=== PATIENT | female | born 1985 | race Caucasian/White ===

== ENCOUNTER 2022-08-28 17:24 | Emergency (ER) | payer BC ==
[~2022-08-28 17:24] MED LIST: Iopamidol 300 61% 100 ML VIAL FS ONE
[2022-08-28] MEDS ORDERED: Dicyclomine 20 MG/2 ML VIAL ONE (19:08)
[2022-08-28 19:22] LABS: ALT (SGPT) 36 U/L (8-55); AST (SGOT) 25 U/L (5-34); Albumin 4.6 g/dL (3.5-5.0); Alkaline Phosphatase 101 U/L (40-110); Anion Gap 16 mmol/L (10-20); BUN (Urea Nitrogen) 16 mg/dL (7.0-18.7); Bilirubin, Total 0.2 mg/dL (0.2-1.2); Calc. Creatinine Clearance 0 mL/min (70-130); Calcium 9.2 mg/dL (7.8-10.44); Carbon Dioxide 21 mmol/L (22-29); Estimated GFR 98; Globulin 3.7 g/dL (2.4-3.5); Glucose 100 mg/dL (70-105); Protein, Total 8.3 g/dL (6.0-8.3); Sodium 136 mmol/L (136-145)
[2022-08-28] MEDS ORDERED: Ondansetron PF 4 MG/2 ML Vial ONE (19:23)
[2022-08-28 19:34] LABS: Chloride 103 mmol/L (98-107); Potassium 3.7 mmol/L (3.5-5.1)
[2022-08-28 19:43] LABS: #Basophils 0.1 10x3/uL (0.0-0.2); #Eosinphils 0.2 10x3/uL (0.0-0.5); #Monocytes 0.7 10x3/uL (0.0-1.1); #Neutrophils 6.6 10x3/uL (1.5-8.4); %Basophils 0.5 % (0.0-2.0); %Eosinophils 2.4 % (0.0-6.0); %Lymphocytes 19.2 % (18.0-47.0); %Monocytes 7.4 % (0.0-10.0); Hemoglobin 8.8 g/dL (12.0-15.5); Mean Corpuscular HGB CONC 29.2 g/dL (32.0-36.0); Mean Corpuscular Volume 65.2 fl (81.6-98.3); Mean Platelet Volume 10.3 fl (7.4-10.4); Platelet Count 455 10x3/uL (150-450); RBC Distribution Width 19.2 % (11.5-14.5); Red Blood Cell (RBC) Count 4.62 10x6/uL (3.90-5.03); White Blood Cell (WBC) Count 9.4 10x3/uL (3.5-10.5)
[2022-08-28 19:52] LABS: BHCG - Serum Negative (NEGATIVE); Pregs Control Background? CLEAR/WHITE (CLR/WHITE); Pregs Control Bar Appear? YES (CONTROL BAR)
[2022-08-28 21:38] LABS: Hypochromia SLIGHT = 6-15 cells (100X) (0-5/hpf); Microcytosis SLIGHT = 6-15 cells (100X) (0-5/hpf); Platelet Morphology Comment Appears Increased
== END 2022-08-28 21:26 | disposition home or self-care (01) ==
LOC: CSHERS 17:24
DX: K52.9 Noninfective gastroenteritis and colitis, unspecified (principal); K92.1 Melena; D64.9 Anemia, unspecified
CPT/HCPCS: 36415; 74177; 80053; 83605; 84703; 85025; 87798; 96361; 96372; 96374; J2405; Q9967

== ENCOUNTER 2025-05-21 08:47 | Outpatient (CLI) | payer BC | END 2025-05-21 08:48 | disposition home or self-care (01) | LOC: CSHLAB 08:47 | PROVIDERS: ATTEND Obstetrics & Gynecology | DX: Z01.810 Encounter for preprocedural cardiovascular examination (principal); D25.0 Submucous leiomyoma of uterus | CPT/HCPCS: 84703; 85027; 86850; 86900; 86901; 93005; 93010 ==

== ENCOUNTER 2025-05-25 06:01 | Day surgery (SDC) | payer BC ==
[2025-05-21 09:15] VITALS: BMI 41.3
[2025-05-21 10:31] LABS: Hematocrit 34.9 % (34.9-44.5); Hemoglobin 11.8 g/dL (12.0-15.5); Mean Corpuscular Hemoglobin 28.6 pg (27.0-33.0); Mean Corpuscular Volume 84.5 fL (81.6-98.3); Platelet Count 276 10x3/uL (150-450); Red Blood Cell (RBC) Count 4.13 10x6/uL (3.90-5.03); White Blood Cell (WBC) Count 5.81 10x3/uL (3.5-10.5)
[2025-05-21 10:43] LABS: BHCG - Serum Negative (NEGATIVE); Pregs Control Background? CLEAR/WHITE (CLR/WHITE); Pregs Control Bar Appear? YES (CONTROL BAR)
[2025-05-25] MEDS ORDERED: Gabapentin 300 MG CAP ONE (06:43)
[2025-05-25] MEDS ORDERED: metroNIDAZOLE 500 MG (100 mL) BAG ONE (06:44)
[2025-05-25] MEDS ORDERED: Famotidine/PF 20 mg/2ml Vial ONE (06:44)
[2025-05-25] MEDS ORDERED: Bupivacaine HCl 0.5%/Epinephrine 1:200,000/PF 30 ml Vial ONE (06:50)
[2025-05-25] MEDS ORDERED: PROPOFOL 40 ML ONE (06:54)
[2025-05-25] MEDS ORDERED: Rocuronium Bromide 10 MG/ML (10ML VIAL) ONE (06:54)
[2025-05-25] MEDS ORDERED: Scopolamine 1 mg/72 hour Patch ONE (07:18)
[2025-05-25] MEDS ORDERED: CEFAZOLIN 2 GM VIAL ONE (07:20)
[2025-05-25] MEDS ORDERED: PHENYLEPHRINE-NS 100 MCG/ML 10 ML SYRINGE ONE (07:37)
[2025-05-25] MEDS ORDERED: SUGAMMADEX SODIUM 200 MG/2 ML VIAL ONE (08:51)
[2025-05-25] MEDS ORDERED: HYDROcodone/Acetaminophen 5/325 mg Tablet ONE (10:24)
== END 2025-05-25 12:00 | disposition home or self-care (01) ==
LOC: CSHSDC 06:01
PROVIDERS: ATTEND Obstetrics & Gynecology
PROC: 0UT94ZZ Resection of Uterus, Percutaneous Endoscopic Approach (ICD-10-PCS; principal; 2025-05-25)
DX: D25.1 Intramural leiomyoma of uterus (principal); N94.6 Dysmenorrhea, unspecified; N83.8 Other noninflammatory disorders of ovary, fallopian tube and broad ligament; I10 Essential (primary) hypertension; D64.9 Anemia, unspecified; F90.9 Attention-deficit hyperactivity disorder, unspecified type; F41.9 Anxiety disorder, unspecified; Q50.5 Embryonic cyst of broad ligament; Z88.0 Allergy status to penicillin; Z88.1 Allergy status to other antibiotic agents; Z88.2 Allergy status to sulfonamides; Z88.5 Allergy status to narcotic agent; Z98.890 Other specified postprocedural states; Z91.09 Other allergy status, other than to drugs and biological substances; Z79.899 Other long term (current) drug therapy
CPT/HCPCS: 36415; 36416; 84703; 85027; 86850; 86900; 86901; 88307; 88341; 88342; C9250-JZ; J1100; J1308; J2704; S2900